=== PATIENT | male | born 1960 | race Caucasian/White ===

== ENCOUNTER 2016-09-17 13:46 | Emergency (ER) | payer OTHER ==
[2016-09-17] MEDS ORDERED: ASPIRIN 81 MG CHEWABLE TAB PO ONE (14:03)
[2016-09-17] MEDS ORDERED: NS 500 ML IV ONE (14:03)
--- NOTE | 2016-09-17 14:03 | EDPHY ---
H & P Stated Complaint: "stiff"CP x 1 hr, started during emotional upset while at cardiology appt. HPI/ROS: HPI CHIEF COMPLAINT: Chest discomfort, AFib HISTORY OF PRESENT ILLNESS: This patient very pleasant 56-year-old male, denies any significant medical or surgical history does not take any daily medications, presents to the emergency room in AFib. He tells me around 11 o' clock last night he developed chest tightness or discomfort across his chest and feeling his heart beating very strong. He tells me that he has been recently diagnosed with AFib he is on Eliquis. He went and saw Dr. Kami Chase this morning and was supposed to get a TE cardioversion however his insurance rejected this. He became more upset developed worsening chest discomfort and decided come the emergency room for evaluation. Currently upon arrival to the emergency room is noted he is in AFib heart rate 93. He does complain of diffuse chest discomfort. Also complains of palpitations. Of note upon arrival to the emergency room Dr. Ochoa is at bedside. Of note this patient does tell me that he fell approximately 2 weeks ago striking his chest while skiing. Ever since then he has had AFib. 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 Lives locally in [place] Family History: Noncontributory ROS REVIEW OF SYSTEMS: A comprehensive 10 point review of systems is otherwise negative aside from elements mentioned in the history of present illness. Exam Constitutional triage nursing summary reviewed, vital signs reviewed, awake/ alert. Eyes normal conjunctivae and sclera, EOMI, PERRLA. HENT normal inspection, atraumatic, moist mucus membranes, no epistaxis, neck supple/ no meningismus, no raccoon eyes. Respiratory clear to auscultation bilaterally, normal breath sounds, no respiratory distress, no wheezing. Cardiovascular irregular, irregular rhythm , no murmur, no edema, distal pulses normal. Gastrointestinal soft, non-tender, no rebound, no guarding, normal bowel sounds, no distension, no pulsatile mass. Genitourinary no CVA tenderness. Musculoskeletal no midline vertebral tenderness, full range of motion, no calf swelling, no tenderness of extremities, no meningismus, good pulses, neurovascularly intact. Skin pink, warm, & dry, no rash, skin atraumatic. Neurologic awake, alert and oriented x 3, AAOx3, moves all 4 extremities equally, motor intact, sensory intact, CN II-XII intact, normal cerebellar, normal vision, normal speech. Psychiatric normal mood/affect. Heme/Lymph/Immune no lymphadenopathy. Differential diagnosis includes but is not limited to: ACS, atypical chest pain , pneumothorax, pneumonia, pulmonary embolism, aortic dissection, congestive heart failure, tumor, musculoskeletal pain, esophageal pain, GERD, peptic ulcer disease, pancreatitis Medical Decision Making: patient had an IV established obtain blood work, chest x-ray, troponin. Obtain EKG. And cardiology will be consulted. Re-evaluation: EKG interpretation by me on record in [employer] system. Impression time of EKG 1405 this is AFib rate of 93, no acute ischemic changes appreciated. 1448: due to trauma 2 weeks ago new onset AFib and neck outpatient echocardiogram that shows the ascending aorta is dilated measuring 4.[address] angiogram of the chest to make sure he does not have an aortic dissection from his trauma. ED x-ray chest one view: shows cardiomegaly. Mediastinum is normal. No widening. Lung navarro normal. CT scan of the Angiogram chest. The results of the study are this is negative for dissection or aneurysm or pulmonary embolism unremarkable CT angiogram chest The study was read by Dr. Goins . I viewed the images myself on the PACS system. 1537: Spoke with Dr. Dominique I did relay this patient's CT angiogram. He plans to do a ANGY cardioversion here in the emergency room. He is requesting echo. And sedation. Patient be set up for conscious sedation. 1638: Patient was verbally consented for conscious sedation and synchronized cardioversion. This patient underwent conscious sedation with propofol. 120 mg of IV propofol was used for sedation. Once the patient was sedated a ANGY was performed. No evidence of clot. The patient underwent synchronized cardioversion 200 joules were used. He is now back in sinus rhythm. He tolerated sickness cardioversion as well as conscious sedation with propofol very well. Dr. Ochoa was at bedside and perform the cardioversion. I performed conscious sedation. There were no complications. He tolerated this very well. EKG interpretation by me on record in [employer] system. Impression post cardioversion EKG time of EKG 1641, this is sinus rhythm rate of [address] elevation or ST depression or T-wave abnormalities. Unremarkable EKG. 1729: Re-evaluation is patient ambulated well throughout the emergency room he p.o. challenge well. Given strict return precautions he understands return emergency room if develops chest pain, shortness of breath, fever, vomiting trouble swallowing. Her questions or concerns. Source: Patient - Personal History Current Tetanus/Diphtheria Vaccine: Yes Current Tetanus Diphtheria and Acellular Pertussis (TDAP): Yes Tetanus Vaccine Date: 2012 - Medical/Surgical History Hx Asthma: No Hx Chronic Respiratory Disease: No Hx Diabetes: No Hx Cardiac Disease: Yes Hx Renal Disease: No Hx Cirrhosis: No Hx Alcoholism: No Hx HIV/AIDS: No Hx Splenectomy or Spleen Trauma: No Other PMH: Afib, appendectomy, hernia repair, thoracic aortic aneurysm - Social History Smoking Status: Never smoked Constitutional: Initial Vital Signs Temperature (C) 36.4 C 09/17/16 13:54 Heart Rate 112 H 09/17/16 13:54 Respiratory Rate 16 09/17/16 13:54 Blood Pressure 100/64 09/17/16 13:54 O2 Sat (%) 97 09/17/16 13:54 O2 Delivery Mode [Post Room Air Procedure 4th] O2 Delivery Mode [Post Room Air Procedure 3rd] O2 Delivery Mode [Post Nasal Cannula Procedure 2nd] O2 Delivery Mode [Post Non-Rebreather Mask Procedure 1st] O2 Delivery Mode [Procedural Non-Rebreather Mask 2nd] O2 Delivery Mode [Procedural Non-Rebreather Mask 1st] O2 Delivery Mode [.Immediate Non-Rebreather Mask Pre-Procedure] O2 Delivery Mode Room Air O2 (L/minute) [Post Procedure 2 2nd] O2 (L/minute) [Post Procedure 15 1st] O2 (L/minute) [Procedural 2nd] 15 O2 (L/minute) [Procedural 1st] 15 O2 (L/minute) [.Immediate Pre- 15 Procedure] O2 (L/minute) 2 Allergies/Adverse Reactions: No Known Allergies Allergy (Verified 09/17/16 13:53) Home Medications: Medication Instructions Recorded Eliquis 09/17/16 Medical Decision Making - Data Points Laboratory Results: Laboratory Results 09/17/16 14:05 09/17/16 14:05 09/17/16 14:05 WBC 6.53 10^3/uL (3.80-9.50) RBC 5.46 10^6/uL (4.40-6.38) Hgb 17.0 g/dL (13.7-17.5) Hct 47.6 % (40.0-51.0) MCV 87.2 fL (81.5-99.8) MCH 31.1 pg (27.9-34.1) MCHC 35.7 g/dL (32.4-36.7) RDW 12.3 % (11.5-15.2) Plt Count 231 10^3/uL (150-400) MPV 9.8 fL (8.7-11.7) Neut % (Auto) 66.9 % (39.3-74.2) Lymph % (Auto) 26.0 % (15.0-45.0) [place] % (Auto) 6.1 % (4.5-13.0) Eos % (Auto) 0.5 L % (0.6-7.6) Baso % (Auto) 0.3 % (0.3-1.7) Nucleat RBC Rel Count 0.0 % (0.0-0.2) Absolute Neuts (auto) 4.37 10^3/uL (1.70-6.50) Absolute Lymphs (auto) 1.70 10^3/uL (1.00-3.00) Absolute Monos (auto) 0.40 10^3/uL (0.30-0.80) Absolute Eos (auto) 0.03 10^3/uL (0.03-0.40) Absolute Basos (auto) 0.02 10^3/uL (0.02-0.10) Absolute Nucleated RBC 0.00 10^3/uL (0-0.01) Immature Gran % 0.2 % (0.0-1.1) Immature Gran # 0.01 10^3/uL (0.00-0.10) PT 14.3 SEC (12.0-15.0) INR 1.12 (0.83-1.16) APTT 32.0 SEC (23.0-38.0) Sodium 143 mEq/L (134-144) Potassium 4.2 mEq/L (3.5-5.2) Chloride 106 mEq/L (97-110) Carbon Dioxide 26 mEq/l (22-31) Anion Gap 11 mEq/L (8-16) BUN 23 mg/dL (7-23) Creatinine 1.2 mg/dL (0.7-1.3) Estimated GFR > 60 Glucose 91 mg/dL (70-100) Calcium 9.5 mg/dL (8.5-10.4) Magnesium 2.0 mg/dL (1.6-2.3) Total Bilirubin 1.3 mg/dL (0.1-1.4) Conjugated Bilirubin 0.5 mg/dL (0.0-0.5) Unconjugated Bilirubin 0.8 mg/dL (0.0-1.1) AST 27 IU/L (17-59) ALT 44 IU/L (21-72) Alkaline Phosphatase 54 IU/L (38-126) Creatine Kinase 86 IU/L (0-224) CK-MB (CK-2) Fraction 1.88 ng/mL (0-3.19) Troponin I < 0.012 ng/mL (0-0.034) NT-Pro-B Natriuret Pep 975 H pg/mL (0-125) Total Protein 7.8 g/dL (6.3-8.2) Albumin 4.8 g/dL (3.5-5.0) Lipase 52.0 IU/L (23-300) Medications Given: Discontinued Medications Aspirin (Aspirin) 324 mg PO EDNOW ONE Stop: 09/17/16 14:04 Last Admin: 09/17/16 14:19 Dose: 324 mg Sodium Chloride (Ns) 500 mls @ 0 mls/hr IV ONCE ONE PRN Reason: As Directed Stop: 09/17/16 14:04 Last Admin: 09/17/16 14:19 Dose: 500 mls Sodium Chloride (Ns) 1,000 mls @ 0 mls/hr IV ONCE ONE PRN Reason: Wide Open Stop: 09/17/16 14:49 Last Admin: 09/17/16 15:21 Dose: 1,000 mls Propofol (Diprivan) 200 mg IVP EDNOW ONE Stop: 09/17/16 16:16 Last Admin: 09/17/16 16:53 Dose: 120 mg Departure - Departure Disposition: Home, Routine, Self-Care Clinical Impression: Atrial fibrillation Qualifiers: Atrial fibrillation type: paroxysmal Qualifier Code: (I48.0) Paroxysmal atrial fibrillation Condition: Good Instructions: Atrial Fibrillation (ED) Additional Instructions: 1. 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 Please call their for an appointment this week. 2. Return to the emergency room if develops any worsening symptoms includes shortness of breath, palpitations, fast heart rate, fever, cough, or pain. 3.Stay well-hydrated. Referrals: Beny Arana MD [Primary Care Provider] - As per Instructions Richard Ochoa MD [Medical Doctor] - As per Instructions
--- NOTE | 2016-09-17 14:07 | CPEKG ---
Heart Rate: 93 RR Interval: 645 QRSD Interval: 104 QT Interval: 376 QTC Interval: 468 QRS [place]: 27 EKG Severity - ABNORMAL ECG - EKG Impression: ATRIAL FIBRILLATION, V-RATE 62-142 EKG Impression: MULTIFORM VENTRICULAR PREMATURE COMPLEXES EKG Impression: CONSIDER POSTERIOR INFARCT EKG Impression: NONSPECIFIC T ABNORMALITIES, LATERAL LEADS Electronically Signed By: Lesley Kang 17-Sep-2016 23:36:13
[2016-09-17 14:16] LABS: % IMMATURE GRANULYOCYTES 0.2 % (0.0-1.1); ABSOLUTE IMMATURE GRANULOCYTES 0.01 10^3/uL (0.00-0.10); ADD DIFF? NO; ADD MORPH? NO; ADD SCAN? NO; ATYPICAL LYMPHOCYTE FLAG 0 (0-99); FRAGMENT RBC FLAG 10 (0-99); HEMATOCRIT 47.6 % (40.0-51.0); LEFT SHIFT FLG 0 (0-99); LIPEMIA HEMOLYSIS FLAG 90 (0-99); MEAN CELL HEMOGLOBIN 31.1 pg (27.9-34.1); MEAN CELL HEMOGLOBIN CONCENTR. 35.7 g/dL (32.4-36.7); MEAN CELL VOLUME 87.2 fL (81.5-99.8); MEAN PLATELET VOLUME 9.8 fL (8.7-11.7); PLATELET CLUMPS FLAG 10 (0-99); PLATELET COUNT 231 10^3/uL (150-400); RED BLOOD CELL COUNT 5.46 10^6/uL (4.40-6.38); RED CELL DISTRIBUTION WIDTH 12.3 % (11.5-15.2)
[2016-09-17 14:24] LABS: INR 1.12 (0.83-1.16); PROTIME(PATIENT) 14.3 SEC (12.0-15.0)
[2016-09-17 14:26] LABS: ALANINE AMINOTRANSFERASE 44 IU/L (21-72); ALBUMIN 4.8 g/dL (3.5-5.0); ALKALINE PHOSPHATASE 54 IU/L (38-126); ANION GAP 11 mEq/L (8-16); ASPARTATE AMINOTRANSFERASE 27 IU/L (17-59); BILIRUBIN,TOTAL 1.3 mg/dL (0.1-1.4); BILIRUBIN-CONJUGATED 0.5 mg/dL (0.0-0.5); BILIRUBIN-UNCONJUGATED 0.8 mg/dL (0.0-1.1); CALCIUM 9.5 mg/dL (8.5-10.4); CARBON DIOXIDE 26 mEq/l (22-31); CHLORIDE 106 mEq/L (97-110); CREATININE 1.2 mg/dL (0.7-1.3); GLOMERULAR FILTRATION RATE > 60; GLUCOSE 91 mg/dL (70-100); POTASSIUM 4.2 mEq/L (3.5-5.2); SODIUM 143 mEq/L (134-144); TOTAL PROTEIN 7.8 g/dL (6.3-8.2)
[2016-09-17 14:37] LABS: CREATINE KINASE-MB FRACTION 1.88 ng/mL (0-3.19); TROPONIN I < 0.012 ng/mL (0-0.034)
[2016-09-17] MEDS ORDERED: NS 1,000 ML IV ONE (14:48)
[2016-09-17] MEDS ORDERED: IOPAMIDOL (ISOVUE 370) 100 ML BTL IV ONE (14:48)
--- NOTE | 2016-09-17 14:52 | DX ---
Portable Chest 14:15 History: Chest pain Comparison: None Findings: Lungs clear. No pneumothorax or pleural effusion. Difficult to exclude cardiomegaly.Normal pulmonary vascularity. EKG leads overlie the chest. No free air or dilated bowel loop identified bene ath either hemidiaphragm. Impression: Negative. Consider routine PA and lateral chest to evaluate cardiac size, when the patien t is clinically able.
--- NOTE | 2016-09-17 15:20 | CT ---
Chest CTA With IV Contrast History: Chest tightness, history of aortic aneurysm, evaluate for dissection. Atrial fibrillation. Technique: Ultrafast ultrathin [address] obtained through the chest after bolus administra tion of 85 mL of Isovue 370 nonionic contrast without complication. Soft tissue and bone window evalu ation is performed. Dose reduction techniques were utilized. Findings: The thoracic aorta is normal in size. The ascending aorta measures 3.6 x 3.6 cm. There is n o evidence for intramural hemorrhage, aortitis or dissection. The brachiocephalic vessels have normal origins. Heart size is normal without pericardial effusion. The coronary arteries have normal origin s, with the caveat that the right takes off anteriorly from the aortic root. No thrombus is identifie d in the left atrium or left atrial appendage. There is no pneumonia, pleural effusion or pulmonary consolidation. There is no mass or adenopathy. T here is no obvious pulmonary embolic disease. 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 There are no mak bphrenic fluid collections. Impression: 1. No source for symptoms identified.. Results discussed with Dr. Glass General information for patients regarding this examination can be found at [email or web address]. If you have questions or comments about this report, please contact me at [phone] (hospital) or [phone] (cell).
[2016-09-17] MEDS ORDERED: PROPOFOL 200 MG/20 ML VIAL IVP ONE (16:15)
[2016-09-17] MEDS ORDERED: PROPOFOL/EMULSION 1,000 MG/100 ML BOTTLE IV ONE (16:15)
[2016-09-17] MEDS ORDERED: BENZOCAINE UNIT DOSE SPRAY HURRICAINE MM ONE (16:20)
--- NOTE | 2016-09-17 16:51 | PDCONSULT ---
Telephone Appointment Clerk Note: Cardiology was called to the ER for assessment of an outpatient from [facility]. The patient was to have had ANGY with possible cardioversion in the CVC, but given insurance issues, the patient was denied the ability to have these procedures. A combination of anxiety about the ongoing issues and this insurance issue, led to the development of chest pains. Given the chest pain/ pressure, the patient was told to go to the ER. In the ER, I had some concerns about "dilation of the aorta" to 4.1 cm given a skiing accident with chest pain/pressure, we opted to have CTA of the aorta for further assessment of the size and morphology. CTA without pathology noted, and remeasure of the ascending aorta to 3.6 cm. ER with sedation provided and ANGY performed without complications ANGY preliminary with low normal LVEF (50%), no clear valve pathology was noted ( grossly normal mitral, aortic, tricuspid, and pulmonic valve). Normal chamber dimensions were appreciated. No thrombus was noted to the left atrial appendage. ANGY probe was removed, and sedation was reassessed. A single shock with 200 J (sync) was provided with atrial fibrillation (140 bpm ) to normal sinus rhythm (65 bpm). No complications were appreciated Patient recovered in the ER Outpatient ECG in four days is recommended Maintain therapy on Eliquis for one month Patient's was present for the procedure and the discussion
[2016-09-17 17:56] VITALS: BP 105/73; PULSE 57; RESP 18; TEMP 98.2; O2SAT 95
--- NOTE | 2016-09-18 03:47 | CPIP ---
[f rep st] INVASIVE CARDIAC PROCEDURE DATE OF PROCEDURE: 09/17/2016 Transesophageal echo report with potential for cardioversion. NAME OF PROCEDURE: 1. Emergency room attending-guided anesthetic. 2. Transesophageal echocardiography. 3. Cardioversion. INDICATION FOR PROCEDURE: Symptomatic atrial fibrillation. DESCRIPTION OF PROCEDURE: After consent was obtained, the patient was placed in the left lateral dec ubitus position. Risks and benefits of the procedure were discussed with the patient and the patient' s , who was present at bedside. Hurricaine spray was placed with light sedation, once again provi ded by the emergency room physician. The transesophageal echo probe was placed without difficulty. Af ter the probe was placed, moderate sedation was induced. Standard views were obtained with the transe sophageal echo probe showing grossly normal chamber dimensions to the atria and ventricles. There was slight reduction in the overall left ventricular systolic function, approximately 50% to 55%. There was no significant valve pathology beyond mild. There was mild mitral regurgitation, trace mild tricu spid regurgitation, grossly normal pulmonic valve, and a trileaflet aortic valve without appreciable insufficiency. There was no thrombus appreciated in the left atrial appendage. No smoke was noted. Th e bubble contrast study was performed with 1 bubble being noted in the early phase of the injection. No further bubble passed. Given an absence of thrombus and left atrial appendage, the transesophageal echo probe was removed. Moderate sedation was achieved and verified. A single shock was performed with synchronized cardiover jesús, with a resting heart rate in atrial fibrillation at 130-140 beats per minute. Synchronized card ioversion at 200 joules was performed and returned the patient to normal sinus rhythm, with a ventric ular rate of 60-65. The patient awakened rapidly after performing this procedure, was talkative. The patient's was present for the entire procedure and the procedure was discussed as it was margarita ng performed. The patient is to be discharged to home from the emergency department after this proced ure has been completed and there has been resolution of the sedation that was administered. The patie nt should have an outpatient EKG in approximately 4 days. I did call over to [facility] to ensure this is scheduled, and the patient should remain on Eliquis as at present, for 1 month. /[id number]/MODL
--- NOTE | 2016-09-18 08:36 | CPEKG ---
Heart Rate: 70 RR Interval: 857 P-R Interval: 168 QRSD Interval: 110 QT Interval: 388 QTC Interval: 419 P [place]: 38 QRS [place]: 21 T Wave [place]: 33 EKG Severity - ABNORMAL ECG - EKG Impression: SINUS RHYTHM EKG Impression: NONSPECIFIC INTRAVENTRICULAR CONDUCTION DELAY Electronically Signed By: Tiffany Hernandez 18-Sep-2016 09:51:14
--- NOTE | 2016-09-21 11:12 | ECHO ---
[id number] + + [address] : : [facility] [address] : : [phone] + Transesophageal Echocardiographic Report + ---+ :Name: RIC DELEON CStudy Date: 09/17/2016 04:28 PM : : Hospital Admission Number: [id number] Location: ER: :: 1960 Gender: Male : :Age: 56 yrs Race: WH : :Reason For Study: Pre-cardioversion : :History: No previous : + ---+ LV The left ventricle is normal in size and function. Ejection Fraction = 50- 55%. RV The right ventricle is grossly normal size. Atria No thrombus is detected in the left atrial appendage. Doppler suggests right to left interatrial shunt. Mitral Valve The mitral valve is normal in structure and function. There is mild mitral regurgitation. Aortic Valve The aortic valve is normal in structure and function. Trace aortic regurgitation. Pulmonic Valve The pulmonic valve is normal in structure and function. There is no pulmonic valvular regurgitation. Tricuspid Valve The tricuspid valve is normal in structure and function. There is mild tricuspid regurgitation. Pericardium There is no pericardial effusion. Conclusion A 2D transesophageal echocardiogram with color flow Doppler was performed. The left ventricle is normal in size and function. Ejection Fraction = 50-55%. No thrombus is detected in the left atrial appendage. There is mild mitral regurgitation. The aortic valve is normal in structure and function. Trace aortic regurgitation. There is mild tricuspid regurgitation. Doppler suggests right to left interatrial shunt. Given an absence of thrombus, we proceeded with cardioversion in the ER Final Reading Physician: Chucky Gardner signed on 09/21/2016 11:11 AM Ordering Physician: Leonardo Vo Performed By: Richard Ochoa MD
== END 2016-09-17 17:50 | disposition home or self-care (01) ==
DX: I48.0 Paroxysmal atrial fibrillation (principal)
CPT/HCPCS: J2704; Q9967